=== PATIENT | female | born 1970 | race Caucasian/White ===

== ENCOUNTER 2022-08-19 10:06 | Day surgery (SDC) | payer OTHER ==
[~2022-08-19] VITALS: Ht 157.5 cm; Wt 73.5 kg
[2022-08-19] MEDS ORDERED: diphenhydrAMINE 50 MG/ML VIAL ONE (11:15)
[2022-08-19] MEDS ORDERED: MIDAZOLAM 2 MG/2 ML VIAL ONE ×2 (11:15→11:16)
[2022-08-19] MEDS ORDERED: fentaNYL citrate 0.05 MG/ML VIAL ONE (11:15)
[2022-08-19] MEDS ORDERED: LIDOCAINE 2% 100 MG/5 ML UJET TP ONE (11:16)
[2022-08-19] MEDS ORDERED: MIDAZOLAM 2 MG/2 ML VIAL IVP ONE (12:40)
[2022-08-19] MEDS ORDERED: fentaNYL citrate 0.05 MG/ML VIAL IVP ONE (12:40)
== END 2022-08-19 13:30 | disposition home or self-care (01) ==
LOC: MDS 10:06 → MMU 10:06 → MDS 13:30
PROVIDERS: ATTEND Internal Medicine Gastroenterology
DX: Z12.11 Encounter for screening for malignant neoplasm of colon (principal); Z88.1 Allergy status to other antibiotic agents; Z20.822 Contact with and (suspected) exposure to COVID-19
CPT/HCPCS: 45378; 87426; J2250; J3010; J1200